=== PATIENT | female | born 1960 | race Caucasian/White ===

== ENCOUNTER 2016-05-09 13:34 | Inpatient (IN) | payer MEDICARE, OTHER ==
[~2016-05-09] VITALS: Ht 147.3 cm; Wt 68.9 kg
[2016-05-09 14:53] LABS: HEMOGLOBIN 14.1 gm/dl (12.3-15.3); RED BLOOD COUNT 4.36 M/UL (4.00-5.10); WHITE BLOOD COUNT 7.5 K/UL (4.5-11.0)
[2016-05-09 15:14] LABS: BUN/CREATININE RATIO 11 (0-10)
[2016-05-09] MEDS ORDERED: SYNTHROID200 MCG PO (21:28)
[2016-05-09] MEDS ORDERED: NEURONTIN 400400 MG PO (21:30)
[2016-05-09] MEDS ORDERED: TRAMADOL HCL50 MG PO (21:30)
[2016-05-09] MEDS ORDERED: CLARITIN10 MG PO (21:31)
[2016-05-09] MEDS ORDERED: KLONOPIN TAB 00.5 MG PO (21:31)
[2016-05-09] MEDS ORDERED: REGLAN 10 MG TA10 MG PO (21:32)
[2016-05-09] MEDS ORDERED: ZOFRAN4 MG PO (21:34)
[2016-05-10 03:39] LABS: RED BLOOD COUNT 4.4 M/UL (4.00-5.10); WHITE BLOOD COUNT 7.5 K/UL (4.5-11.0)
[2016-05-10 03:59] LABS: BUN/CREATININE RATIO 15 (0-10)
== END 2016-05-11 11:30 | disposition home or self-care (01) | DRG 917 ==
LOC: ER1 13:34 → ZEROF 17:30 → M/S 17:30 → PROG CARE 17:30 → M/S 05-10 18:13 → EDBD 05-11 11:30 → M/S 05-11 11:30
PROVIDERS: Emergency Medicine; ADMIT Internal Medicine
DX: T43.591A Poisoning by other antipsychotics and neuroleptics, accidental (unintentional), initial encounter (principal); G92 Toxic encephalopathy; J98.11 Atelectasis; T42.4X1A Poisoning by benzodiazepines, accidental (unintentional), initial encounter; F32.9 Major depressive disorder, single episode, unspecified; E03.9 Hypothyroidism, unspecified; J45.909 Unspecified asthma, uncomplicated; F17.210 Nicotine dependence, cigarettes, uncomplicated; K31.84 Gastroparesis; F41.9 Anxiety disorder, unspecified; R09.02 Hypoxemia; G89.4 Chronic pain syndrome; Z86.718 Personal history of other venous thrombosis and embolism; Z88.6 Allergy status to analgesic agent; Z88.0 Allergy status to penicillin
CPT/HCPCS: 36415; 36600; 71010; 71020; 80053; 80307; 81001; 82803; 83735; 84439; 84443; 84484; 85025; 93005; 94640; 94664; 99285; G0480; J1650; J7030

== ENCOUNTER 2016-05-12 12:42 | Inpatient (IN) | payer MEDICARE, OTHER ==
[~2016-05-12] VITALS: Ht 147.3 cm; Wt 64.4 kg
[~2016-05-12 12:42] MED LIST: CLARITIN10 MG PO; KLONOPIN TAB 00.5 MG PO; NEURONTIN 400400 MG PO; REGLAN 10 MG TA10 MG PO; SYNTHROID200 MCG PO; TRAMADOL HCL50 MG PO; ZOFRAN4 MG PO
[2016-05-12 14:06] LABS: RED BLOOD COUNT 4.39 M/UL (4.00-5.10); WHITE BLOOD COUNT 7.1 K/UL (4.5-11.0)
[2016-05-12 14:17] LABS: BUN/CREATININE RATIO 13 (0-10)
[2016-05-14 04:51] LABS: BUN/CREATININE RATIO 13 (0-10)
[2016-05-14 08:09] LABS: HEMOGLOBIN 12.4 gm/dl (12.3-15.3)
[2016-05-14 08:10] LABS: RED BLOOD COUNT 3.9 M/UL (4.00-5.10); WHITE BLOOD COUNT 5.2 K/UL (4.5-11.0)
== END 2016-05-19 08:19 | DRG 917 ==
LOC: ER1 12:42 → CCU 23:00 → MED SURG 4 23:00 → EDBD 23:00 → ZEROF 23:00 → CCU 05-13 00:07 → MED SURG 4 05-15 18:24
PROVIDERS: Emergency Medicine; Internal Medicine; ADMIT Internal Medicine
DX: T42.4X1A Poisoning by benzodiazepines, accidental (unintentional), initial encounter (principal); J96.01 Acute respiratory failure with hypoxia; N39.0 Urinary tract infection, site not specified; Y92.009 Unspecified place in unspecified non-institutional (private) residence as the place of occurrence of the external cause; F32.9 Major depressive disorder, single episode, unspecified; R11.0 Nausea; F17.210 Nicotine dependence, cigarettes, uncomplicated; E03.9 Hypothyroidism, unspecified; R07.9 Chest pain, unspecified; J44.9 Chronic obstructive pulmonary disease, unspecified; Z91.14 Patient's other noncompliance with medication regimen; Z63.8 Other specified problems related to primary support group; Z63.4 Disappearance and death of family member; B96.20 Unspecified Escherichia coli [E. coli] as the cause of diseases classified elsewhere; Z96.652 Presence of left artificial knee joint; Z88.6 Allergy status to analgesic agent; Z88.0 Allergy status to penicillin; Z86.718 Personal history of other venous thrombosis and embolism; Z86.19 Personal history of other infectious and parasitic diseases
CPT/HCPCS: 36415; 36600; 71010; 71020; 80053; 80307; 81001; 82550; 82553; 82803; 82962; 83735; 84439; 84443; 84484; 85025; 85027; 87040; 87077; 87086; 87186; 93005; 94640; 94664; 96365; 96375; 99285; G0480; J1335; J1650; J1956; J7030; J7050